=== PATIENT | male | born 1960 | race Caucasian/White ===

== ENCOUNTER 2016-07-08 05:54 | Inpatient (IN) | payer BC, OTHER ==
[2016-06-13 11:52] VITALS: BMI 34.0
--- NOTE | 2016-07-05 14:24 | HISTORY & PHYSICAL EXAMINATION ---
DATE OF ADMISSION: 07/08/2016 He is being preoped for lumbar spine decompression and instrumentation at L4-L5 and L5-S1, possibly interbody 5-1. CHIEF COMPLAINT: Back, lower extremity difficulty, paresthesias, numbness, tingling. HISTORY OF PRESENT ILLNESS: Samm is a delightful gentleman. He has really gone downhill with increasing back and lower extremity difficulty, paresthesias, numbness and tingling, mostly in the S1 nerve root distribution, somewhat the 5 area as well. He has stenosis, he has instability on a mild degree, fairly high grade degenerative changes. He has electing for surgery L5-S1, L4-L5 decompression laminectomy fusion more than likely an interbody at L5-S1, more than likely just a decompression at L4-L5. PAST SURGICAL HISTORY: Include prior cervical spine surgery, lumbar spine surgery. ALLERGIES: Negative. MEDICATIONS: Valsartan and Diclofenac. SOCIAL HISTORY: He is a nonsmoker, nonalcohol user. REVIEW OF SYSTEMS: Denies any blurred vision, double vision, tinnitus, vertigo. Denies chest pain, palpitations. Denies asthma, wheezing, shortness of breath. No nausea, vomiting, urgency, frequency, dysuria. Denies any neurological issues such as multiple sclerosis. OBJECTIVE: GENERAL: He is 5'8, 210, 56 years old, alert, oriented. Mentation normal. VITAL SIGNS: Blood pressure 130/80, pulse of 80, respiratory rate 16. HEAD, EYES, EARS, NOSE, AND THROAT EXAMINATION: Essentially normal. CARDIAC: Normal S1, S2, no S3. LUNGS: Clear to auscultation. No rales, rhonchi or wheezing. ABDOMEN: Soft, nontender. NEUROLOGIC EXAMINATION: Demonstrates some paresthesias, numbness and tingling, no true weakness, weakness brought on by ambulation. X-rays reviewed. MRI reviewed. IMPRESSION: Degenerative changes lumbar spine L5-S1, L4-L5, osteophyte formation, stenosis at 4-5 and 5-1 lumbar spine. DISPOSITION: Includes decompression and instrumentation L4-L5 and L5-S1, possible interbody at L5-S1 lumbar spine.
[2016-07-08] VITALS (9 sets, daily range): BP systolic 103–140; BP diastolic 68–95; PULSE 66–77; TEMP 36.2–36.8; O2SAT 95–99; Ht 170.2 cm; Wt 98.6 kg
[~2016-07-08] VITALS: Ht 170.2 cm; Wt 98.6 kg
[~2016-07-08 05:54] MED LIST: DICL-201 PO; LOSARTAN PO
[2016-07-08] MEDS ORDERED: CEFAZOLIN 2000 MG/60 ML D5W 60 ML IV SCH (06:00)
[2016-07-08] MEDS ORDERED: NSS 1000ML IV SCH (06:00)
--- NOTE | 2016-07-08 07:16 | History & Physical Bridge Note ---
H&P Re-Evaluation Bridge Note: I have examined the patient, reviewed the History & Physical and in the interval since the performance of the History & Physical I have noted the following changes of clinical significance: No changes noted
[2016-07-08] MEDS ORDERED: ATROPINE SULFATE 0.1 MG/ML 5ML SYR IV PRN (07:30)
[2016-07-08] MEDS ORDERED: ONDANSETRON INJ 2 MG/ML 2 ML VIAL IV PRN ×2 (07:30→10:15)
[2016-07-08] MEDS ORDERED: HYDROmorphone INJ 2 MG/ML SYR/VIAL IV PRN (07:30)
[2016-07-08] MEDS ORDERED: LABETALOL HCL IV 5 MG/ML 20ML IV PRN (07:30)
[2016-07-08] MEDS ORDERED: GELATIN SPONGE SZ 100 TOP ONE (08:38)
[2016-07-08] MEDS ORDERED: THROMBIN FOR SOLN 20000 UNIT KIT TOP ONE (08:38)
[2016-07-08] MEDS ORDERED: VANCOMYCIN HCL 1000MG/20ML VIAL TOP ONE (08:39)
[2016-07-08] MEDS ORDERED: BUPIVACAINE/EPINEPHRINE 0.5% MPF 1:200,000 30 ML VIAL INJ ONE (09:43)
--- NOTE | 2016-07-08 09:46 | DIAGNOSTIC IMAGING REPORT ---
INTRAOPERATIVE LUMBAR SPINE SINGLE VIEW CLINICAL HISTORY: L4-S1 DECOMPRESSION/FUSION/L5-S1 INTERBODY COMPARISON STUDY: No previous studies for comparison. FINDINGS: Posterior skin retractors are visualized. There are postsurgical changes of an L5-S1 discectomy and interbody fusion. There are pedicle screws present the L5 and S1 levels. A single fluoroscopic spot image was acquired. 10 seconds of fluoroscopic time was utilized. IMPRESSION: Postsurgical changes of a discectomy, interbody fusion and posterior hardware fusion at the L5-S1 level Electronically signed by: Shankar Sevilla M.D. 07/08/2016 9:44 AM Dictated Date/Time: 07/08/2016 9:43 AM
[2016-07-08] MEDS ORDERED: BACITRACIN 50000 UNIT VIAL IR ONE (09:53)
[2016-07-08] MEDS ORDERED: SODIUM CHLORIDE 0.9% 1000ML 1,000 ML IV SCH (10:11)
--- NOTE | 2016-07-08 10:12 | [facility] Post Operative Brief Note ---
Immediate Operative Summary Operative Date Jul 08, 2016. Pre-Operative Diagnosis Degenerative Changes Lumbar Spine L5-S1, L4-L5, Osteophyte Formation, Stenosis at L4-L5 and L5-S1 lumbar spine Post-Operative Diagnosis Degenerative Changes Lumbar Spine L5-S1, L4-L5, Osteophyte Formation, Stenosis at L4-L5 and L5-S1 lumbar spine Procedure(s) Performed Decompression and Instrumentation L4-L5, L5-S1, Interbody L5-S1 Surgeon Dr. Hahn Talk Show Host Surgeon(s) GAVIN Rawls Estimated Blood Loss 300 ml Findings stenosis and instability Specimens none per surgeon Complication(s) None
[2016-07-08] MEDS ORDERED: LORAZEPAM 1 MG TAB PO PRN (10:15)
[2016-07-08] MEDS ORDERED: MAGNESIUM HYDROXIDE SUSP 30 ML UDC PO PRN (10:15)
[2016-07-08] MEDS ORDERED: PROMETHAZINE HCL INJ 12.5 MG in SODIUM CHLORIDE 0.9% 50ML 50 ML IV PRN (10:15)
[2016-07-08] MEDS ORDERED: ACETAMINOPHEN 325 MG TAB PO PRN (10:15)
[2016-07-08] MEDS ORDERED: NALOXONE HCL 0.4 MG/1 ML VIAL/CARP IV PRN (10:15)
[2016-07-08] MEDS ORDERED: METOCLOPRAMIDE HCL INJ 5 MG/ML 2 ML VIAL IV PRN (10:15)
[2016-07-08] MEDS ORDERED: LORAZEPAM INJ 1 MG in SYRINGE 0 ML IV PRN (10:15)
[2016-07-08] MEDS: HYDROmorphone HCL 0.5MG/ML 50 ML CASSETTE IV PRN ×4 (10:30→22:55)
[2016-07-08] MEDS ORDERED: VALS320T PO (11:09)
--- NOTE | 2016-07-08 11:13 | Anesthesiology Progress Note ---
Anesthesia Post Op Note Date & Time Jul 08, 2016 at 11:13 Vital Signs Pain Intensity: 0 Vital Signs Past 12 Hours Date Time Temp Pulse Resp B/P Pulse Ox O2 Delivery O2 Flow Rate FiO2 07/08/16 11:05 36.2 78 12 132/68 96 Nasal Cannula 3 07/08/16 10:50 36.2 78 12 139/69 97 Nasal Cannula 3 07/08/16 10:40 74 12 120/73 95 Nasal Cannula 3 07/08/16 10:30 78 12 138/78 97 Nasal Cannula 3 07/08/16 10:20 82 12 141/88 96 Nasal Cannula 3 07/08/16 10:12 36.3 92 12 151/93 98 Nasal Cannula 3 07/08/16 06:15 36.8 69 16 140/95 97 Room Air Notes Mental Status: alert / awake / arousable, participated in evaluation Pt Amnestic to Procedure: Yes Nausea / Vomiting: adequately controlled Pain: adequately controlled Airway Patency, RR, SpO2: stable & adequate BP & HR: stable & adequate Hydration State: stable & adequate Anesthetic Complications: no major complications apparent
[2016-07-08] MEDS: SODIUM CHLORIDE 0.9% 1000ML 1,000 ML IV SCH ×2 (11:22→23:06)
--- NOTE | 2016-07-08 12:54 | OPERATIVE REPORT ---
DATE OF OPERATION: 07/08/2016 PREOPERATIVE DIAGNOSES: Spinal stenosis L5-S1, L4-L5 instability and disc space collapse L5-S1. POSTOPERATIVE DIAGNOSES: Same. PROCEDURES: Include a posterior approach lumbar spine decompression laminectomy L4-L5 and L5-S1, foraminotomy, partial facetectomy, decompression of L5-S1 nerve roots bilaterally. We did a formal discectomy at L5-S1. We did pedicle screws at L5-S1 and a posterior lumbar interbody fusion L5-S1. SURGEON: Dr. Hahn. AWNING MAKER AND INSTALLER: Loc Palacios PA-C. COMPLICATIONS: Zero. BLOOD LOSS: 300. ANESTHESIA: General. Antibiotic provided, Porter catheter provided. Formal timeout obtained. DESCRIPTION OF PROCEDURE: The patient was placed prone, scrubbed first, prepped as well and draped sterile. We made a skin incision, fascial incision, putting in deep self-retaining retractor. We were able to do a formal decompression of lamina of 5, partial of 4, foraminotomy, partial facetectomy L4, L5 and S1 nerve roots. After we decompressed the spine very well, I was able to retract the dura over medial direction on the left hand side, I could see the disc quite readily. We did a formal discectomy. We then instrumented the spine. I was able to insert pedicle screws into 5, pedicle screws into sacrum using anatomic landmarks and C-arm guidance. We then evacuated the disc at L5-S1, elevated it up with the various reamers and ryley. We settled on an 8 mm cage, 8 mm in height, 26 mm in length and 10 mm across. It fit perfectly in the vacated discectomy. We irrigated thoroughly, put in the rods, locked down the rods. We irrigated with about 600 mL of fluid, bone grafted out over the transverse processes and the sacral ala and began our closure, #1 Vicryl, 2-0 and 3-0 nylon on the skin. Sterile dressing applied. The patient returned to PACU stable. No apparent complications. I attest to the content of the Intraoperative Record and any orders documented therein. Any exceptions are noted below. [facility]
[2016-07-08] MEDS: CEFAZOLIN IV 1,000 MG in DEXTROSE 5% 50ML 50 ML IV SCH (15:56)
[2016-07-08] MEDS: KETOROLAC TROMETHAMINE 30 MG/ML VIAL IV. SCH ×2 (15:56→21:32)
[2016-07-09] MEDS: CEFAZOLIN IV 1,000 MG in DEXTROSE 5% 50ML 50 ML IV SCH ×2 (00:16→08:23)
[2016-07-09 03:15] VITALS: BP 109/57; PULSE 84; TEMP 36.7; O2SAT 98
[2016-07-09] MEDS: KETOROLAC TROMETHAMINE 30 MG/ML VIAL IV. SCH ×4 (05:39→21:54)
[2016-07-09] MEDS ORDERED: BISACODYL 10 MG SUPP PR PRN (06:00)
[2016-07-09] MEDS ORDERED: BISACODYL 5 MG TABEC PO PRN (06:00)
[2016-07-09] MEDS ORDERED: DC PCA ONE (06:00)
[2016-07-09] MEDS ORDERED: NURSING VERBAL MED ORDER ONE (06:45)
[2016-07-09 07:03] VITALS: BP 114/67; PULSE 75; TEMP 36.9; O2SAT 97
[2016-07-09] MEDS ORDERED: HYDROmorphone INJ 1 MG/ML SYR IV PRN (08:00)
[2016-07-09] MEDS ORDERED: OXYCODONE/ACETAMINOPHEN 5-325 TAB PO PRN ×2 (08:00)
[2016-07-09] MEDS ORDERED: HYDROmorphone INJ 2 MG/ML SYR/VIAL IV PRN (08:00)
[2016-07-09] MEDS: VALSARTAN 80 MG TAB PO SCH (08:30)
[2016-07-09] MEDS: POLYETHYLENE (MIRALAX) 17 GM PACK PO SCH (08:30)
--- NOTE | 2016-07-09 09:54 | Anesthesiology Progress Note ---
Anesthesia Post Op Note Date & Time Jul 09, 2016 at 09:53 Vital Signs Pain Intensity: 0.0 Vital Signs Past 12 Hours Date Time Temp Pulse Resp B/P Pulse Ox O2 Delivery O2 Flow Rate FiO2 07/09/16 07:31 Room Air 07/09/16 07:03 36.9 75 18 114/67 97 Room Air 07/09/16 03:15 36.7 84 16 109/57 98 Room Air 07/09/16 00:15 Room Air 07/08/16 23:28 36.8 77 18 107/68 96 Room Air Notes Mental Status: alert / awake / arousable, participated in evaluation Pt Amnestic to Procedure: Yes Nausea / Vomiting: adequately controlled Pain: adequately controlled Airway Patency, RR, SpO2: stable & adequate BP & HR: stable & adequate Hydration State: stable & adequate Anesthetic Complications: no major complications apparent
[2016-07-09 11:37] VITALS: BP 116/74; PULSE 85; TEMP 36.8; O2SAT 97
[2016-07-09 15:39] VITALS: BP 126/80; PULSE 97; TEMP 37.1; O2SAT 97
[2016-07-09 22:55] VITALS: BP 131/78; PULSE 88; TEMP 37.3; O2SAT 95
[2016-07-10] MEDS: KETOROLAC TROMETHAMINE 30 MG/ML VIAL IV. SCH ×2 (03:59→10:22)
[2016-07-10 06:27] VITALS: BP 116/70; PULSE 83; TEMP 36.6; O2SAT 96
--- NOTE | 2016-07-10 07:41 | Discharge Instructions ---
Discharge Instructions Admission Reason for Admission: Discharge Discharge Diagnosis / Problem: spinal stenosis Discharge Goals Goal(s): Improve function Activity Recommendations Activity Limitations: per Instructions/Follow-up section Lifting Limitations: no more than 5 pounds Exercise/Sports Limitations: until after follow-up appointment May Resume Sexual Activity: after follow-up appointment Shower/Bathe: keep incision dry Driving or Machine Use: home ,rest, recover . Current Hospital Diet Patient's current hospital diet: Regular Diet Discharge Diet Recommended Diet: Regular Diet Fluid Restriction: None Procedures Procedures Performed: Decompression and Instrumentation L4-L5, L5-S1, Interbody L5-S1 Pending Studies Studies pending at discharge: no Medical Emergencies . Who to Call and When: Medical Emergencies: If at any time you feel your situation is an emergency, please call 911 immediately. . Non-Emergent Contact Non-Emergency issues call your: Surgeon Call Non-Emergent contact if: your pain is concerning you . "Provider Documentation" section prepared by Pete Hahn. VTE Core Measure Inpt VTE Proph given/why not?: Treatment not tolerated
--- NOTE | 2016-07-10 08:36 | DISCHARGE SUMMARY ---
SUBJECTIVE: Minimal complaints of pain, taking p.o. Mentation normal. No shortness of breath, chest pain or lower extremity difficulty. OBJECTIVE: Vital signs stable. Laboratory work not indicated. Vital signs stable as stated and neurologically normal. ASSESSMENT: Status post spinal stenosis surgery, doing well, short run. DISPOSITION: We will change his dressing today. We will get him discharged home today. Instructions and precautions provided. He has a followup appointment. He has prescriptions on his chart. He was given instructions in the office and here at the hospital.
[2016-07-10] MEDS: POLYETHYLENE (MIRALAX) 17 GM PACK PO SCH (09:00)
[2016-07-10] MEDS: VALSARTAN 80 MG TAB PO SCH (09:16)
[2016-07-10 09:30] VITALS: BP 116/70; PULSE 83; TEMP 36.6; O2SAT 96
== END 2016-07-10 10:40 | disposition home or self-care (01) | DRG 460 ==
LOC: ENRESERVTM → ENRESERVDT → C.ACU 05:54 → C.3E 10:16
PROVIDERS: ADMIT Orthopaedic Surgery Orthopaedic Surgery of the Spine; ATTEND Orthopaedic Surgery Orthopaedic Surgery of the Spine
PROC: 0SG3071 Fusion of Lumbosacral Joint with Autologous Tissue Substitute, Posterior Approach, Posterior Column, Open Approach (ICD-10-PCS; principal; 2016-07-08 07:30)
PROC: 0SG30AJ Fusion of Lumbosacral Joint with Interbody Fusion Device, Posterior Approach, Anterior Column, Open Approach (ICD-10-PCS; principal; 2016-07-08 07:30)
PROC: 01NB0ZZ Release Lumbar Nerve, Open Approach (ICD-10-PCS; principal; 2016-07-08 07:30)
PROC: 0ST40ZZ Resection of Lumbosacral Disc, Open Approach (ICD-10-PCS; principal; 2016-07-08 07:30)
DX: M51.37 Other intervertebral disc degeneration, lumbosacral region (principal); M51.36 Other intervertebral disc degeneration, lumbar region; M48.07 Spinal stenosis, lumbosacral region; M48.06 Spinal stenosis, lumbar region; M53.2X7 Spinal instabilities, lumbosacral region; M53.2X6 Spinal instabilities, lumbar region; M25.78 Osteophyte, vertebrae; M19.90 Unspecified osteoarthritis, unspecified site; M54.16 Radiculopathy, lumbar region; E66.9 Obesity, unspecified; Z68.34 Body mass index [BMI] 34.0-34.9, adult; Z72.0 Tobacco use; Z98.1 Arthrodesis status; Z79.1 Long term (current) use of non-steroidal anti-inflammatories (NSAID); Z79.899 Other long term (current) drug therapy

== ENCOUNTER 2017-08-29 09:08 | Day surgery (SDC) | payer BC ==
[2017-08-29] VITALS (10 sets, daily range): BP systolic 122–151; BP diastolic 79–109; PULSE 67–90; TEMP 36.7–37; O2SAT 95–97; Ht 170.2 cm; Wt 93.0 kg
[~2017-08-29] VITALS: Ht 170.2 cm; Wt 93.0 kg
[~2017-08-29 09:08] MED LIST changes: -LOSARTAN PO; +VALS320T PO
[2017-08-29] MEDS ORDERED: IBUP-1428 PO (09:32)
[2017-08-29] MEDS ORDERED: ASPI81TA28 PO (09:32)
[2017-08-29] MEDS ORDERED: ACETAMINOPHEN 500 MG TAB PO PRN (10:00)
--- NOTE | 2017-08-29 10:01 | Discharge Instructions ---
Discharge Instructions Procedure Procedure Date: Aug 29, 2017. Reason for visit: Lumbar Stenosis. Discharge Discharge Date: Aug 29, 2017. Discharge Diagnosis: myelpathy Instructions Activity Recommendations: 1 Day-May resume regular activity Return to School/Work: no limitations Recommended Home Diet: Resume Previous Diet Allergies Uncoded Allergies: SULFA (Allergy, Unknown, itchy, 08/29/17) Gabo Alatorre Recommendations: Call your doctor if: * Temperature above 101 degrees * Pain not relieved by pain medicine ordered * There is increased drainage or redness from any incision * You have any unanswered questions or concerns. Your Doctors Instructions noted above were prepared by provider Shankar Sevilla. Patient Signature Section: Patient Instructions Signature Page Samm Herr Patient (or Guardian) Signature/Date: I have read and understand the instructions given to me by my caregivers. Caregiver/RN/Doctor Signature/Date: The above-named patient and/or guardian has received patient instructions on this date. + Original Patient Signature Page (only) stays with chart. Please make copy for patient.
--- NOTE | 2017-08-29 10:29 | DIAGNOSTIC IMAGING REPORT ---
FLUOROSCOPICALLY GUIDED LUMBAR MYELOGRAM CLINICAL HISTORY: Lumbar stenosis. Fluoroscopy time: 0.6 minutes. Procedure: The procedure, risks and benefits were discussed with the patient including the risk of spinal headache, bleeding and infection. The patient agreed to the procedure and informed written consent was obtained. The procedure was performed by Dr. Campbell following a timeout. Skin was prepped and draped in sterile fashion and local anesthesia was achieved with 1% lidocaine. Under intermittent fluoroscopic guidance, a 3 1/2 inch 22-gauge needle was recommended into the thecal sac at the L5 level. There was immediate return of cerebrospinal fluid. A total of 12 cc of Isovue-M 200 was instilled into the thecal sac. The needle was removed. The patient tolerated the procedure well and no immediate complications were evident. The patient was transported to CT. IMPRESSION: Fluoroscopically guided lumbar myelogram prior to CT. Electronically signed by: Nico Campbell M.D. 08/29/2017 10:28 AM Dictated Date/Time: 08/29/2017 10:26 AM
--- NOTE | 2017-08-29 10:56 | DIAGNOSTIC IMAGING REPORT ---
CT LUMBAR MYELOGRAM CLINICAL HISTORY: Lumbar stenosis. Previous surgery. COMPARISON STUDY: Lumbar spine MRI April 12, 2016 and lumbar spine radiographs August 08, 2017. TECHNIQUE: Following a fluoroscopically guided lumbar myelogram, axial images through the lumbar spine were obtained without intravenous contrast. Sagittal and coronal reconstructed reviewed utilizing soft tissue and bone algorithms. FINDINGS: For purposes of numbering on this exam, the L5-S1 disc space is assigned to axial image 298 of [id number]. There are postsurgical findings consistent with an L5-S1 discectomy and interbody spacer placement. There are bilateral pedicle screws at the L5 and S1 levels with a posterior decompression. Vertebral body heights are maintained. There is no acute lumbar spine fracture or subluxation. There is no suspicious lytic or blastic lesion. No intracanalicular mass or fluid collection is present. There is preferential filling of the thecal sac below the L3-L4 level which suggests a partial block. Paravertebral soft tissues are unremarkable. L1-L2: There is minimal disc bulge. The central canal, lateral recesses and neural foramen are patent. L2-L3: The central canal and neural foramen are patent. L3-L4: There is disc bulge, ligamentous hypertrophy and facet arthrosis that result in severe narrowing of the central canal and lateral recesses with mild narrowing of both neural foramen. L4-L5: There is no central canal stenosis. There is mild narrowing of the lateral recesses and neural foramen at this level. L5-S1: There is no residual central canal stenosis. There is mild to moderate narrowing of both neural foramen. IMPRESSION: 1. Status post L5-S1 discectomy, posterior decompression and bilateral pedicle screw fusion. 2. No acute lumbar spine fracture. 3. Severe central canal stenosis at L3-L4 due to disc bulge, ligamentous hypertrophy and facet arthrosis. Otherwise, patent central canal. 4. Moderate multilevel neural foraminal stenosis, as detailed above. Electronically signed by: Nico Campbell M.D. 08/29/2017 10:54 AM Dictated Date/Time: 08/29/2017 10:46 AM
== END 2017-08-29 14:05 | disposition home or self-care (01) ==
LOC: C.ACU 09:08
PROVIDERS: ATTEND Orthopaedic Surgery Orthopaedic Surgery of the Spine
DX: M47.817 Spondylosis without myelopathy or radiculopathy, lumbosacral region (principal); M48.061 Spinal stenosis, lumbar region without neurogenic claudication